=== PATIENT | male | born 1985 | race African-American/Black ===

== ENCOUNTER 2020-06-03 00:22 | Emergency (ER) | payer OTHER ==
[2020-06-03] MEDS ORDERED: Ondansetron ODT 4 MG TAB ONE (02:15)
[2020-06-03] MEDS ORDERED: Morphine 4 MG/ML VIAL ONE ×2 (02:15→04:14)
== END 2020-06-03 04:20 | disposition short-term general hospital (02) ==
LOC: NAV ERS 00:22
DX: S92.102A Unspecified fracture of left talus, initial encounter for closed fracture (principal); I10 Essential (primary) hypertension; F17.210 Nicotine dependence, cigarettes, uncomplicated; X50.1XXA Overexertion from prolonged static or awkward postures, initial encounter
CPT/HCPCS: 96372; 96374; J2270; Q0162